=== PATIENT | male | born 1975 | race Caucasian/White ===

== ENCOUNTER 2022-10-17 07:23 | Emergency (ER) | payer BC ==
[~2022-10-17] VITALS: Ht 175.3 cm; Wt 97.7 kg
[2022-10-17 07:50] LABS: BASOPHILS # (AUTO) 0.1 X10'3 (0-0.2); BASOPHILS % (AUTO) 1.4 % (0-1); EOSINOPHILS # (AUTO) 1.4 X10'3 (0-0.9); EOSINOPHILS % (AUTO) 16.6 % (0-6); HEMATOCRIT 49.5 % (42.0-52.0); LYMPHOCYTES % (AUTO) 23.2 % (21-51); MEAN CORPUSCULAR HGB CONC 34.4 g/dL (33.0-36.5); MEAN CORPUSCULAR VOLUME 93.2 FL (78-98); MEAN PLATELET VOLUME 9.5 FL (7.4-10.4); MONOCYTES # (AUTO) 0.8 X10'3 (0-0.9); NEUTROPHILS # (AUTO) 4.3 X10'3 (1.8-7.7); NEUTROPHILS % (AUTO) 49.8 % (42-75); PLATELET COUNT 197 X10'3 (140-440); RED BLOOD COUNT 5.31 X10'6 (4.70-6.10); RED CELL DISTRIBUTION WIDTH 13.4 % (11.5-14.5); WHITE BLOOD COUNT 8.6 X10'3 (4.5-11.0)
[2022-10-17 08:06] LABS: ALANINE AMINOTRANSFERASE 57 U/L (12-78); ALBUMIN 3.9 G/DL (3.4-5.0); ALBUMIN/GLOBULIN RATIO 1.1 (1.1-1.5); ALKALINE PHOSPHATASE 50 IU/L (46-116); ANION GAP 11 (8-16); ASPARTATE AMINO TRANSFERASE 28 U/L (10-37); BILIRUBIN,TOTAL 0.6 MG/DL (0.1-1.0); BLOOD UREA NITROGEN 17 MG/DL (7-18); CALCIUM 9.4 MG/DL (8.5-10.1); CHLORIDE 105 MMOL/L (99-107); CREATININE 1.13 MG/DL (0.60-1.10); GLUCOSE 91 MG/DL (70-104); POTASSIUM 3.9 MMOL/L (3.5-5.1); SODIUM 139 MMOL/L (135-145); TOTAL CARBON DIOXIDE 23.4 MMOL/L (24-32); TOTAL PROTEIN 7.5 G/DL (6.4-8.2); eGFR 69 ML/MIN
[2022-10-17] MEDS ORDERED: iohexol 350MG/ML 100ml bottle IV ONE (08:09)
[2022-10-17] MEDS ORDERED: ipratropium/albuterol 3ml nebule ONE (08:22)
[2022-10-17 08:26] LABS: D-DIMER < 0.19 MG/L FEU (0-0.50)
[2022-10-17] MEDS ORDERED: ipratropium/albuterol 3ml nebule NEB ONE (08:28)
[2022-10-17] MEDS ORDERED: PRED20TA PO (09:49)
[2022-10-17] MEDS ORDERED: predniSONE 20 mg tablet PO ONE (09:50)
[2022-10-17 10:22] VITALS: BP 135/102
[2022-10-17] MEDS ORDERED: ipratropium/albuterol 3ml nebule NEB SCH (11:00)
== END 2022-10-17 10:24 | disposition home or self-care (01) ==
LOC: ER 07:23
DX: R06.02 Shortness of breath (principal); J32.9 Chronic sinusitis, unspecified; Z88.0 Allergy status to penicillin; Z88.1 Allergy status to other antibiotic agents
CPT/HCPCS: 36415; 70486; 71045; 71275; 80053; 83880; 84484; 85025; 85379; 93005; 94640; 99285; J3490; J7512; Q9967